=== PATIENT | female | born 1990 | race Caucasian/White ===

== ENCOUNTER 2017-12-28 10:24 | Emergency (ER) | payer SELFPAY ==
[~2017-12-28] VITALS: Ht 165.1 cm; Wt 81.6 kg
[2017-12-28] MEDS ORDERED: IV NORMAL SALINE 1,000ML 1,000 ML IV SCH (10:45)
--- NOTE | 2017-12-28 10:57 | PHYS DOC ---
Past History Past Medical History: Other Additional Past Medical Histor: PCOS Past Surgical History: Cholecystectomy, Other Additional Past Surgical Histo: Gastric Sleeve Alcohol Use: Rarely Drug Use: None Adult General Chief Complaint Chief Complaint: ABDOMINAL PAIN HPI HPI Patient is a 27-year-old female who presents to the emergency department for evaluation. She states that for the past 3 days, she has had gradually worsening lower abdominal discomfort. It is generalized in her lower abdomen, but not necessarily in her pelvis. She has had some nausea, and occasional episodes of vomiting. She reports having normal bowel movements without diarrhea or constipation. She has not had any urinary symptoms, abnormal vaginal bleeding or discharge. She states her LMP was 8/18, and she is due to start her period at any time. She states that there is a possibility she is , although she denies concern for STDs, and declines to be checked for such (she expresses understanding of the limitations this places on evaluation of potential gynecologic pathology or infections). There are no alleviating or exacerbating factors to her symptoms. Review of Systems Review of Systems Constitutional: Denies fever or chills [] Eyes: Denies change in visual acuity, redness, or eye pain [] HENT: Denies nasal congestion or sore throat [] Respiratory: Denies cough or shortness of breath [] Cardiovascular: The patient denies any shortness of breath, chest pain, palpitations, or orthopnea [] GI: Denies bloody stools or diarrhea [] : Denies dysuria or hematuria [] Musculoskeletal: Denies back pain or joint pain [] Integument: Denies rash or skin lesions [] Neurologic: Denies headache, focal weakness or sensory changes [] Endocrine: Denies polyuria or polydipsia [] All other systems were reviewed and found to be within normal limits, except as documented in this note. Allergies Allergies Allergies Coded Allergies Type Severity Reaction Last Updated Verified Penicillins Allergy Unknown 12/28/17 Yes Sulfa (Sulfonamide Antibiotics) Allergy Unknown 12/28/17 Yes morphine Allergy Unknown 12/28/17 Yes Physical Exam Physical Exam PHYSICAL EXAM: CONSTITUTIONAL: Well developed, well nourished HEAD: normocephalic, atraumatic EENT: PERRL, EOMI. Conjunctivae normal color, sclerae non-icteric; moist mucous membranes. NECK: Supple, non-tender; no meningismus. LUNGS: Lungs CTA, breathing even and unlabored. Normal air movement. HEART: Regular rate and rhythm, no murmur CHEST: No deformity; non-tender ABDOMEN: The abdomen is soft, there is diffuse tenderness to palpation in the lower part of the abdomen, without focal tenderness, rebound, or guarding. There are no palpable masses. The upper abdomen is soft and relatively non- tender, no masses or bruits. Normal bowel sounds are present. EXTREM: Normal ROM; no deformity, no calf tenderness. Normal pulses palpable in all extremities. There is no pedal edema. SKIN: No rash; no diaphoresis NEURO: Alert; normal speech and cognition; CN's grossly intact; strength grossly intact without focal deficit. BACK: No CVA TTP. Current Patient Data Vital Signs Vital Signs Date Time Temp Pulse Resp B/P (MAP) Pulse Ox O2 Delivery O2 Flow Rate FiO2 12/28/17 10:30 98.2 78 16 97 Room Air Lab Results Laboratory Tests Test 12/28/17 10:06 12/28/17 10:45 12/28/17 11:05 Bedside Urine HCG, Qualitative hcg negative Urine Collection Type Unknown Urine Color Yellow Urine Clarity Cloudy Urine pH 5.5 Urine Specific [place] 1.025 Urine Protein Neg Urine Glucose (UA) Neg mg/dL Urine Ketones (Stick) Neg mg/dL Urine Blood Neg Urine Nitrite Neg Urine Bilirubin Neg Urine Urobilinogen Dipstick 2 mg/dL Urine Leukocyte Esterase Trace Urine RBC Occ /HPF Urine WBC 5-10 /HPF Urine Squamous Epithelial Cells Mod /LPF Urine Bacteria Mod /HPF Urine Mucus Slight /LPF Serum Test, Qualitative Negative White Blood Count 8.3 x10^3/uL Red Blood Count 5.07 x10^6/uL Hemoglobin 15.4 g/dL Hematocrit 44.1 % Mean Corpuscular Volume 87 fL Mean Corpuscular Hemoglobin 30 pg Mean Corpuscular Hemoglobin Concent 35 g/dL Red Cell Distribution Width 13.2 % Platelet Count 250 x10^3/uL Neutrophils (%) (Auto) 64 % Lymphocytes (%) (Auto) 30 % Monocytes (%) (Auto) 6 % Eosinophils (%) (Auto) 0 % Basophils (%) (Auto) 1 % Neutrophils # (Auto) 5.3 x10^3uL Lymphocytes # (Auto) 2.4 x10^3/uL Monocytes # (Auto) 0.5 x10^3/uL Eosinophils # (Auto) 0.0 x10^3/uL Basophils # (Auto) 0.0 x10^3/uL Sodium Level 140 mmol/L Potassium Level 3.8 mmol/L Chloride Level 106 mmol/L Carbon Dioxide Level 29 mmol/L Anion Gap 5 Blood Urea Nitrogen 11 mg/dL Creatinine 0.6 mg/dL Estimated GFR (Cockcroft-Gault) 119.0 BUN/Creatinine Ratio 18 Glucose Level 87 mg/dL Calcium Level 8.8 mg/dL Total Bilirubin 0.7 mg/dL Aspartate Amino Transf (AST/SGOT) 16 U/L Alanine Aminotransferase (ALT/SGPT) 37 U/L Alkaline Phosphatase 56 U/L Total Protein 6.8 g/dL Albumin 3.4 g/dL Albumin/Globulin Ratio 1.0 Lipase 99 U/L Current Medications Medications (Trade) Dose Ordered Sig/Dat Route PRN Reason Start Time Stop Time Status Last Admin Dose Admin Sodium Chloride 1,000 ml @ 100 mls/hr Q10H IV 12/28/17 10:45 12/28/17 20:44 12/28/17 11:13 Fentanyl Citrate (Fentanyl 2ml Vial) 100 mcg 1X ONCE IV 12/28/17 11:15 12/28/17 11:16 DC 12/28/17 11:12 Ondansetron HCl (Zofran) 4 mg 1X ONCE IV 12/28/17 11:15 12/28/17 11:16 DC 12/28/17 11:11 Iohexol (Omnipaque 300 Mg/ml) 75 ml 1X ONCE IV 12/28/17 11:30 12/28/17 11:31 DC 12/28/17 11:26 EKG EKG [] Radiology/Procedures Radiology/Procedures [PROCEDURE: CT ABD PELV W/ IV CONTRST ONLY PQRS Compliance Statement: One or more of the following individualized dose reduction techniques were utilized for this examination: 1. Automated exposure control 2. Adjustment of the mA and/or kV according to patient size 3. Use of iterative reconstruction technique CT ABD PELV W/ IV CONTRST ONLY Clinical Indication: LOWER ABDOMINAL PAIN FOR THREE DAYS W NAUSEA AND VOMITING, GB REMOVED, GASTRIC SLEEVE SURGERY, NEG PREG. Comparison: None. Technique: Helical CT imaging of the abdomen and pelvis is performed after 75 cc of Omnipaque 300 IV contrast. Oral contrast not given. Findings: Lung bases are clear. Cardiac size normal. Cholecystectomy. Heterogeneous spleen is probably due to contrast phase. The liver is homogeneous. The extra hepatic duct is not dilated. Pancreas is homogeneous. There is no hydronephrosis. Abdominal aorta and adrenal glands are normal. Postsurgical changes of gastric sleeve. There is no dilated small bowel. No colon wall thickening. The appendix is normal. No abdominal adenopathy or free fluid. Mild pelvic free fluid, probably physiologic. Uterus unremarkable. 1.7 cm peripherally enhancing right ovary functional cyst. Urinary bladder is normal. No acute bone abnormality. IMPRESSION: 1. No acute abdominal or pelvic abnormality. 2. Mild pelvic free fluid. Small peripherally enhancing right ovary functional cyst. Findings likely physiologic.] Course & Med Decision Making Course & Med Decision Making Pertinent Labs and Imaging studies reviewed. (See chart for details) [11:20 PM: The patient's condition remained stable. I discussed test results with the patient and she continues to decline a pelvic examination at this time. I suspect the urinalysis is more likely representing a contaminated urine specimen as opposed to true infection but because of her pelvic pain she'll be treated with a short course of antibiotics empirically. Return precautions were discussed in detail the need for close follow-up was discussed as well.] Dragon Disclaimer Dragon Disclaimer This electronic medical record was generated, in whole or in part, using a voice recognition dictation system. Departure Departure: Impression: Primary Impression: Lower abdominal pain Disposition: 01 HOME, SELF-CARE Condition: STABLE Referrals: PCP,NO (PCP) Patient Instructions: Abdominal Migraine, Pelvic Pain, Female Scripts Diclofenac Sodium (DICLOFENAC SODIUM) 50 Mg Tablet. 1 TAB PO BID PRN for PAIN, #20 TAB 0 Refills Prov: AVIS RANDOLPH MD 12/28/17 Nitrofurantoin Monohyd/M-Cryst (MACROBID 100 MG CAPSULE) 100 Mg Capsule 1 CAP PO BID, #10 CAP Prov: AVIS RANDOLPH MD 12/28/17 AVIS RANDOLPH MD Dec 28, 2017 10:57
[2017-12-28] MEDS ORDERED: ONDANSETRON PF 4 MG/2 ML VIAL. IV ONE (11:15)
[2017-12-28 11:28] LABS: PREG TEST PT QUAL NEGATIVE (NEG)
[2017-12-28] MEDS ORDERED: IOHEXOL 300 MG/ML 75 ML VIAL. IV ONE (11:30)
[2017-12-28 11:34] LABS: ALBUMIN 3.4 g/dL (3.4-5.0); CALCIUM 8.8 mg/dL (8.5-10.1); CREATININE 0.6 mg/dL (0.6-1.0); POTASSIUM 3.8 mmol/L (3.5-5.1); TOTAL BILIRUBIN 0.7 mg/dL (0.2-1.0); TOTAL PROTEIN 6.8 g/dL (6.4-8.2)
[2017-12-28 11:35] LABS: BACTERIA,URINE MOD /HPF (0-FEW); BILIRUBIN,URINE NEG (NEG); CLARITY,URINE CLOUDY; COLOR,URINE YELLOW; GLUCOSE,URINE NEG (NEG); NITRITE,URINE NEG (NEG); RBC,URINE OCC /HPF (0-2); UROBILINOGEN,URINE 2 mg/dL (0.2 mg/dL)
[2017-12-28 11:36] LABS: SQUAMOUS EPITHELIAL CELL,UR MOD /LPF
[2017-12-28 11:45] LABS: BASO % 1 % (0-3); EOS % 0 % (0-3); HEMATOCRIT 44.1 % (36.0-47.0); HEMOGLOBIN 15.4 g/dL (12.0-15.5); LYMPH # 2.4 x10^3/uL (1.0-4.8); LYMPH % 30 % (24-48); MEAN CORPUSCULAR HEMOGLOBIN 30 pg (25-35); MEAN CORPUSCULAR HGB CONC 35 g/dL (31-37); MEAN CORPUSCULAR VOLUME 87 fL (79-100); MONO # 0.5 x10^3/uL (0.0-1.1); MONO % 6 % (0-9); NEUT # 5.3 x10^3uL (1.8-7.7); NEUT % 64 % (31-73); PLATELET COUNT 250 x10^3/uL (140-400); RED BLOOD COUNT 5.07 x10^6/uL (3.50-5.40); RED CELL DISTRIBUTION WIDTH 13.2 % (11.5-14.5); WHITE BLOOD COUNT 8.3 x10^3/uL (4.0-11.0)
--- NOTE | 2017-12-28 12:03 | RAD ---
PQRS Compliance Statement: One or more of the following individualized dose reduction techniques were utilized for this examination: 1. Automated exposure control 2. Adjustment of the mA and/or kV according to patient size 3. Use of iterative reconstruction technique CT ABD PELV W/ IV CONTRST ONLY Clinical Indication: LOWER ABDOMINAL PAIN FOR THREE DAYS W NAUSEA AND VOMITING, GB REMOVED, GASTRIC SLEEVE SURGERY, NEG PREG. Comparison: None. Technique: Helical CT imaging of the abdomen and pelvis is performed after 75 cc of Omnipaque 300 IV contrast. Oral contrast not given. Findings: Lung bases are clear. Cardiac size normal. Cholecystectomy. Heterogeneous spleen is probably due to contrast phase. The liver is homogeneous. The extra hepatic duct is not dilated. Pancreas is homogeneous. There is no hydronephrosis. Abdominal aorta and adrenal glands are normal. Postsurgical changes of gastric sleeve. There is no dilated small bowel. No colon wall thickening. The appendix is normal. No abdominal adenopathy or free fluid. Mild pelvic free fluid, probably physiologic. Uterus unremarkable. 1.7 cm peripherally enhancing right ovary functional cyst. Urinary bladder is normal. No acute bone abnormality. IMPRESSION: 1. No acute abdominal or pelvic abnormality. 2. Mild pelvic free fluid. Small peripherally enhancing right ovary functional cyst. Findings likely physiologic. Electronically signed by: Roberto Adam MD (12/28/2017 12:00 PM) [id number]
[2017-12-28] MEDS ORDERED: DICL50TA4 PO (12:27)
[2017-12-28] MEDS ORDERED: NITR100C62 PO (12:27)
[2017-12-28 12:40] VITALS: BP 116/63
== END 2017-12-28 12:43 | disposition home or self-care (01) ==
LOC: ER 10:24
DX: R10.30 Lower abdominal pain, unspecified (principal); R10.84 Generalized abdominal pain; R11.2 Nausea with vomiting, unspecified; E28.2 Polycystic ovarian syndrome; Z90.49 Acquired absence of other specified parts of digestive tract; Z88.0 Allergy status to penicillin; Z88.2 Allergy status to sulfonamides; Z88.5 Allergy status to narcotic agent
CPT/HCPCS: 36415; 74177; 80053; 81001; 81025; 83690; 84703; 85025; 87086; 96361; 96374; 96375; 99285; J2405; J3010; Q9967; J7030